=== PATIENT | female | born 1965 | race Caucasian/White ===

== ENCOUNTER 2016-11-30 11:48 | Emergency (ER) | payer SELFPAY ==
[2016-11-30 12:30] LABS: ABSOLUTE BASOPHILS # (AUTO) 0.1 10^3/uL (0.0-0.2); ABSOLUTE EOSINOPHILS # (AUTO) 0.2 10^3/uL (0.0-0.6); ABSOLUTE LYMPHOCYTES (AUTO) 1.7 10^3/uL (0.5-4.7); ABSOLUTE MONOCYTES (AUTO) 0.6 10^3/uL (0.1-1.4); ABSOLUTE NEUT (AUTO) 6.2 10^3/uL (1.7-8.2); EOSINOPHILS % (AUTO) 2.5 % (0-6); HEMATOCRIT 42.8 % (36.0-47.0); HEMOGLOBIN 14.6 g/dL (12.0-15.5); LYMPHOCYTES % (AUTO) 19.5 % (13-45); MEAN CORPUSCULAR HGB CONC 34.2 g/dL (32.0-36.0); MEAN CORPUSCULAR VOLUME 91 fl (80-97); MONOCYTES % (AUTO) 6.3 % (3-13); RED BLOOD COUNT 4.72 10^6/uL (3.72-5.28); RED CELL DISTRIBUTION WIDTH 12.9 % (11.5-14.0); SEGMENTED NEUTROPHILS % (AUTO) 70.7 % (42-78); WHITE BLOOD COUNT 8.7 10^3/uL (4.0-10.5)
[2016-11-30 12:40] LABS: ALANINE AMINOTRANSFERASE 40 U/L (9-52); ALBUMIN 4.5 g/dL (3.5-5.0); ALKALINE PHOSPHATASE 82 U/L (38-126); ANION GAP 12 (5-19); ASPARTATE AMINO TRANSFERASE 36 U/L (14-36); BILIRUBIN,DIRECT 0.4 mg/dL (0.0-0.4); BILIRUBIN,TOTAL 0.6 mg/dL (0.2-1.3); BLOOD UREA NITROGEN 11 mg/dL (7-20); CARBON DIOXIDE 24 mmol/L (22-30); CHLORIDE 106 mmol/L (98-107); CREATINE KINASE 89 U/L (30-135); CREATININE RESULT 0.65 mg/dL (0.52-1.25); GLUCOSE 108 mg/dL (75-110); POTASSIUM 4.4 mmol/L (3.6-5.0); SODIUM 141.5 mmol/L (137-145)
[2016-11-30] MEDS ORDERED: ONDANSETRON HCL INJ/PF 4 MG/2 ML SDV IV ONE (12:43)
[2016-11-30] MEDS ORDERED: KETOROLAC TROMETHAMINE INJ/PF 30 MG/1 ML SDV IV ONE (12:43)
[2016-11-30] MEDS ORDERED: NORMAL SALINE 1000 ML 1,000 ML IV PRN (12:43)
[2016-11-30 12:55] LABS: TROPONIN I < 0.012 ng/mL
--- NOTE | 2016-11-30 13:57 | EKG REPORT ---
SEVERITY:- NORMAL ECG - SINUS RHYTHM : Confirmed by: Mohamud Shi MD 30-Nov-2016 13:56:28
--- NOTE | 2016-11-30 14:26 | ER Document Report ---
ED General - General Chief Complaint: Chest Pain Stated Complaint: BLOOD PRESSURE ISSUES Time Seen by Provider: 11/30/16 11:59 Mode of Arrival: Ambulatory Information source: Patient TRAVEL OUTSIDE OF THE [place] IN LAST 30 DAYS: No - HPI Patient complains to provider of: Elevated blood pressure, chest heaviness, headache, nausea Onset: This morning - 8am Onset/Duration: Sudden Quality of pain: Achy Severity: Moderate Pain Level: 3 Associated symptoms: Chills, Nausea, Shortness of breath Exacerbated by: Denies Relieved by: Denies Similar symptoms previously: Yes Recently seen / treated by doctor: No Notes: Patient is a 51-year-old female presenting to the emergency room complaining of elevated blood pressure with left-sided chest pain, frontal headache, sensation of hot and cold chills, and nausea, symptoms started around 8:00 this morning, she reports a history of similar symptoms a few months ago and in fact was admitted in January 2016 for similar symptoms, had a negative cardiac workup, and symptoms appeared to resolve once her blood pressure was under control, she does report that she recently stopped taking her blood pressure medications and her Lexapro as she had ran out and did not have the finances to obtain more, however she started taking them again yesterday - Related Data Allergies/Adverse Reactions: amoxicillin trihydrate [From Augmentin] Allergy (Verified 11/30/16 17:26) aspirin [Aspirin] Allergy (Verified 11/30/16 17:26) azithromycin [Azithromycin] Allergy (Verified 11/30/16 17:26) codeine [Codeine] Allergy (Verified 11/30/16 17:26) naproxen [From Naprosyn] Allergy (Verified 11/30/16 17:26) Penicillins Allergy (Verified 11/30/16 17:26) Potassium Clavulanate * [From Augmentin] Allergy (Verified 11/30/16 17:26) Past Medical History - General Information source: Patient - Social History Smoking Status: Current Every Day Smoker Chew tobacco use (# tins/day): No Frequency of alcohol use: None Drug Abuse: None Family History: None - Past Medical History Cardiac Medical History: Reports: Hx Hypertension Pulmonary Medical History: Reports: Hx Asthma, Hx Bronchitis, Hx Pneumonia Psychiatric Medical History: Reports: Hx Anxiety Past Surgical History: Reports: Hx Cholecystectomy, Hx Orthopedic Surgery - bilateral hands, Hx Tubal Ligation - Immunizations Hx Diphtheria, Pertussis, Tetanus Vaccination: Yes Review of Systems - Review of Systems Constitutional: No symptoms reported EENT: No symptoms reported Cardiovascular: See HPI Respiratory: No symptoms reported Gastrointestinal: See HPI Genitourinary: No symptoms reported Female Genitourinary: No symptoms reported Musculoskeletal: No symptoms reported Skin: No symptoms reported Hematologic/Lymphatic: No symptoms reported Neurological/Psychological: See HPI -: Yes All other systems reviewed and negative Physical Exam - Vital signs Vitals: Pulse Ox 98 11/30/16 11:51 Interpretation: Normal - General General appearance: Appears well, Alert - HEENT Head: Normocephalic, Atraumatic Eyes: Normal Pupils: PERRL - Respiratory Respiratory status: No respiratory distress Chest status: Nontender Breath sounds: Normal Chest palpation: Normal - Cardiovascular Rhythm: Regular Heart sounds: Normal auscultation Murmur: No - Abdominal Inspection: Normal Distension: No distension Bowel sounds: Normal Tenderness: Nontender Organomegaly: No organomegaly - Back Back: Normal, Nontender - Extremities General upper extremity: Normal inspection, Nontender, Normal color, Normal ROM , Normal temperature General lower extremity: Normal inspection, Nontender, Normal color, Normal ROM , Normal temperature, Normal weight bearing. No: Carol's sign - Neurological Neuro grossly intact: Yes Cognition: Normal Orientation: AAOx4 [place] Coma Scale Eye Opening: Spontaneous [place] Coma Scale Verbal: Oriented [place] Coma Scale Motor: Obeys Commands [place] Coma Scale Total: 15 Speech: Normal Motor strength normal: LUE, RUE, LLE, RLE Sensory: Normal - Psychological Associated symptoms: Normal affect, Normal mood - Skin Skin Temperature: Warm Skin Moisture: Dry Skin Color: Normal Course - Re-evaluation Re-evalutation: 11/30/16 20:45 Patient resting comfortably, she ate something, reports feeling much better, symptoms are completely resolved, enzymes 2 were negative, likely her symptoms are related to the recent restarting of her Lexapro and her blood pressure medication causing some side effects as she was without them for approximately 10 days, patient was advised to follow-up with her primary care provider in 1-2 days or return if symptoms worsen, patient acknowledges understanding and agreement with this plan - Vital Signs Vital signs: Temp Pulse Resp BP Pulse Ox 98.7 F 24 H 137/84 H 95 11/30/16 15:56 11/30/16 15:55 11/30/16 15:56 11/30/16 15:56 - Laboratory Result Diagrams: 11/30/16 12:06 11/30/16 12:06 - Diagnostic Test Radiology reviewed: Image reviewed, Reports reviewed - EKG Interpretation by Me EKG shows normal: Sinus rhythm Rate: Normal Rhythm: NSR Discharge - Discharge Clinical Impression: Hypertension Qualifiers: Hypertension type: unspecified Qualified Code(s): I10 - Essential (primary) hypertension Chest pain Qualifiers: Chest pain type: unspecified Qualified Code(s): R07.9 - Chest pain, unspecified Condition: Stable Disposition: HOME, SELF-CARE Instructions: Chest Pain of Unclear Cause ([facility]) Additional Instructions: Follow up with your primary care provider in one to 2 days. Return to the emergency room immediately if symptoms worsen or any additional concerns. Forms: Elevated Blood Pressure Referrals: YOLY HOWARD MD [Primary Care Provider] - Follow up as needed
[2016-11-30 16:02] VITALS: BP 137/84
--- NOTE | 2016-12-01 15:07 | RADIOLOGY REPORT (SQ) ---
EXAM DESCRIPTION: CHEST SINGLE VIEW COMPLETED DATE/TIME: 11/30/2016, 1211 hours REASON FOR STUDY: Chest pain COMPARISON: 01/16/2016 TECHNIQUE: AP portable chest, 11/30/2016, 1211 hours LIMITATIONS: None FINDINGS: AP portable chest with EKG leads over the chest. No acute infiltrates. Cardiac silhouett e size, black, bony structures unremarkable. IMPRESSION: No acute findings.
== END 2016-11-30 16:01 | disposition home or self-care (01) ==
LOC: ER 11:48
DX: R07.9 Chest pain, unspecified (principal); I10 Essential (primary) hypertension; J45.909 Unspecified asthma, uncomplicated; R51 Headache; R11.0 Nausea; F17.200 Nicotine dependence, unspecified, uncomplicated; Z87.01 Personal history of pneumonia (recurrent); Z88.0 Allergy status to penicillin; Z88.6 Allergy status to analgesic agent; Z88.1 Allergy status to other antibiotic agents; Z88.5 Allergy status to narcotic agent
CPT/HCPCS: 93005; 99285; 96361; 96374; 96375; 36415; 82553; 82550; 83690; 85025; 80053; 84484; 71010; 93010; J1885; J2405; J7030

== ENCOUNTER 2016-11-30 17:15 | Emergency (ER) | payer SELFPAY ==
[2016-11-30 17:26] VITALS: BP 131/79
--- NOTE | 2016-11-30 18:34 | ER Document Report ---
ED Medical Screen (RME) - General Chief Complaint: High Blood Pressure Stated Complaint: BLOOD PRESSURE ISSUES Time Seen by Provider: 11/30/16 18:31 Notes: Patient is here because she is concerned about her blood pressure that keeps going up and feeling flushed. She awakened this morning with a headache and her blood pressure was 176/98. She went to work and while there began to feel flushed and her blood pressure was high and she felt like she almost passed out. She was picked up by EMS with a blood pressure of 194/114. Transported to the emergency department at where she spent 4 hours this afternoon being evaluated without significant findings. She was discharged less than an hour ago and says that when she hit it out to the parking lot, she began to feel flushed again and lightheaded and she took her blood pressure again and it was 168/87, so she returned to be further evaluated. Patient had some chest pains earlier in the day but not now. Patient has high blood pressure and is supposed to be on medications, but was out of her medicines for 10 days until she resumed taking them yesterday. Not diabetic. Is a smoker. Suffers from anxiety. TRAVEL OUTSIDE OF THE [place] IN LAST 30 DAYS: No - Related Data Allergies/Adverse Reactions: amoxicillin trihydrate [From Augmentin] Allergy (Verified 11/30/16 17:26) aspirin [Aspirin] Allergy (Verified 11/30/16 17:26) azithromycin [Azithromycin] Allergy (Verified 11/30/16 17:26) codeine [Codeine] Allergy (Verified 11/30/16 17:26) naproxen [From Naprosyn] Allergy (Verified 11/30/16 17:26) Penicillins Allergy (Verified 11/30/16 17:26) Potassium Clavulanate * [From Augmentin] Allergy (Verified 11/30/16 17:26) Past Medical History - Social History Chew tobacco use (# tins/day): No Frequency of alcohol use: None Drug Abuse: None - Past Medical History Cardiac Medical History: Reports: Hx Hypertension Pulmonary Medical History: Reports: Hx Asthma, Hx Bronchitis, Hx Pneumonia Renal/ Medical History: Denies: Hx Peritoneal Dialysis Psychiatric Medical History: Reports: Hx Anxiety Past Surgical History: Reports: Hx Cholecystectomy, Hx Orthopedic Surgery - bilateral hands, Hx Tubal Ligation - Immunizations Hx Diphtheria, Pertussis, Tetanus Vaccination: Yes Physical Exam - Vital signs Vitals: Temp Pulse Resp BP Pulse Ox 98.6 F 69 20 131/79 H 96 11/30/16 17:24 11/30/16 17:24 11/30/16 17:24 11/30/16 17:24 11/30/16 17:24 Course - Vital Signs Vital signs: Temp Pulse Resp BP Pulse Ox 98.6 F 69 20 131/79 H 96 11/30/16 17:24 11/30/16 17:24 11/30/16 17:24 11/30/16 17:24 11/30/16 17:24
== END 2016-11-30 21:03 | disposition left against medical advice (07) ==
LOC: ER 17:15
DX: I10 Essential (primary) hypertension (principal); R42 Dizziness and giddiness; R23.2 Flushing; J45.909 Unspecified asthma, uncomplicated; F17.200 Nicotine dependence, unspecified, uncomplicated; Z88.5 Allergy status to narcotic agent; Z88.1 Allergy status to other antibiotic agents; Z88.0 Allergy status to penicillin; Z88.6 Allergy status to analgesic agent; Z88.8 Allergy status to other drugs, medicaments and biological substances; Z53.20 Procedure and treatment not carried out because of patient's decision for unspecified reasons
CPT/HCPCS: 99281